=== PATIENT | male | born 1980 ===

== ENCOUNTER → 2023-06-26 12:39 | Outpatient (CLI) | payer BC, SELFPAY ==
--- NOTE | ~2023-06-26 | XR_ITS ---
XR lumbar spine 2-3V 06/26/2023 13:39 Indication: Back pain Procedure: 3 views lumbar spine Comparison: No prior studies for comparison. Findings: Vertebral body heights are maintained. There is mild disc narrowing at L3-4 through L5-S1. There is facet hypertrophy at L5-S1. No fracture or traumatic malalignment. Pedicles intact. Sacral f oramen are symmetric. Impression: 1: Mild lumbar spondylosis. Reviewed, dictated and finalized at location L. Impression: 1: Mild lumbar spondylosis.
--- NOTE | ~2023-06-26 | XR_ITS ---
EXAMINATION:XR cervical spine 4-5V DATE: 06/26/2023 13:39 INDICATION: Neck pain TECHNIQUE: AP, lateral, bilateral oblique, and odontoid views of the cervical spine are provided. COMPARISON: None FINDINGS: Alignment is normal. The odontoid process is intact. No fracture is identified. The vertebr al body heights are maintained. There is moderate loss of intervertebral disc space height at C6-7. T here is mild multilevel facet and uncovertebral joint osteoarthritis. There is mild neuroforaminal st enosis at C6-7. Prevertebral soft tissues are normal. IMPRESSION: 1. Mild to moderate cervical spondylosis at C6-7. Reviewed, dictated and finalized at location A.
--- NOTE | ~2023-06-26 | XR_ITS ---
EXAMINATION: XR thoracic spine 3V DATE: 06/26/2023 13:39 INDICATION: Back pain TECHNIQUE: AP, lateral and lateral swimmer's views of the thoracic spine were obtained. COMPARISON: None. FINDINGS: Bone alignment is normal. There is no fracture. There is mild loss of intervertebral disc s pace height at multiple levels in the thoracic spine. There appears to be mild anterior wedging of th e lower thoracic spine, likely physiologic. IMPRESSION: 1. Moderate thoracic spondylosis without acute findings. Reviewed, dictated and finalized at location A.
== END ==
PROVIDERS: PCP Family Medicine; Visit Provider Nurse Practitioner Family
DX: R20.0 Anesthesia of skin (principal); M47.894 Other spondylosis, thoracic region; M47.892 Other spondylosis, cervical region; M47.896 Other spondylosis, lumbar region
CPT/HCPCS: 72050; 72072; 72100